=== PATIENT | male | born 1970 | race Caucasian/White ===

== ENCOUNTER 2019-08-30 17:05 | Emergency (ER) | payer MEDICARE, SELFPAY ==
--- NOTE | ~2019-08-30 | XR_ITS ---
EXAMINATION: XR chest 2V EXAM DATE: 08/30/2019 17:50 INDICATION: Fever, shortness of breath. TECHNIQUE: Frontal and lateral projections of the chest obtained and reviewed. Comparison is made to prior examination from 03/28/2019. FINDINGS: Sternotomy wires are present without findings to suggest sternal dehiscence. Heart is uppe r limits of normal in size. Cardiac silhouette is stable in size compared to prior exam. No confluent consolidation, pneumothorax or pleural effusion suspected. Spine stimulator leads. Mild thoracic sp ondylosis. There is no significant interval change. IMPRESSION: 1. No acute cardiopulmonary findings. Reviewed, dictated and finalized at location A.
[2019-08-30 17:16] VITALS: BP 129/72; PULSE 98; RESP 22; TEMP 37.5; O2SAT 96
--- NOTE | 2019-08-30 17:25 | ED.FEVER ---
HPI - Fever General Chief Complaint: Upper Respiratory Infection Stated Complaint: cant catch breath, blurry vision Time Seen by Provider: 08/30/19 17:25 Source: patient Mode of arrival: ambulatory Limitations: no limitations History of Present Illness HPI Narrative: 48-year-old man with history of coronary artery disease, congestive heart disease, and COPD comes in today complaining of feeling ill starting yesterday having a fever up to 100.2 F. patient states that today he began to have shortness of breath starting this morning. He has had a cough, nasal congestion, and fatigue. He denies any sick exposures, travel. he has had no vomiting, diarrhea, chest pain, purulence sputum production, dysuria, or abdominal pain. MD elicited complaint: fever and malaise Related Data Home Medications Medication Instructions Recorded Confirmed albuterol sulfate 2 puff INHALATION PRN PRN 08/30/19 08/30/19 allopurinol 300 mg PO DAILY 08/30/19 08/30/19 aspirin 81 mg PO DAILY 08/30/19 08/30/19 carvedilol 6.25 mg PO BID 08/30/19 08/30/19 gabapentin 600 mg PO BID 08/30/19 08/30/19 lisinopril 20 mg PO DAILY 08/30/19 08/30/19 magnesium 500 mg PO DAILY 08/30/19 08/30/19 metformin 1,000 mg PO HS 08/30/19 08/30/19 metformin 500 mg PO QAM 08/30/19 08/30/19 pravastatin 80 mg PO HS 08/30/19 08/30/19 Allergies Allergy/AdvReac Type Severity Reaction Status Date / Time propoxyphene Allergy Verified 01/12/11 17:44 Review of Systems Constitutional: Constitutional: Denies chills, Reports fatigue and Reports fever(s) Eyes: Eyes: Denies change in vision and Denies photophobia ENT: Denies dysphagia, Reports nasal congestion and Reports sore throat Cardiovascular: Cardiovascular: Denies chest pain and Denies radiating jaw, neck or arm pain Respiratory: Respiratory: Reports chest congestion, Reports cough, Reports dyspnea and Reports wheezing Gastrointestinal: Gastrointestinal: Denies abdominal pain, Denies diarrhea, Denies nausea and Denies vomiting Genitourinary: Genitourinary: Denies hematuria, Denies dysuria and Denies urinary frequency Musculoskeletal: Musculoskeletal: Reports myalgias, Denies arthralgias and Denies joint swelling Integumentary/Breasts: Skin/Breast: Denies pruritus, Denies erythema and Denies rash Neurologic: Denies vertigo, Denies dizziness and Denies syncope Psychiatric: Psychiatric: Denies anxiety and Denies depression Endocrine: Endocrine: Denies polydipsia and Denies polyuria Hematologic/Lymphatic: Hematologic/Lymphatic: Denies easy bleeding and Denies easy bruising Allergic/Immunologic: Allergic/Immunologic: Denies lip swelling and Denies wheezing PMFSH Past Medical History Medical History CAD (coronary artery disease) CHF (congestive heart failure) Chronic back pain Dyslipidemia Gout HTN (hypertension) T2DM (type 2 diabetes mellitus) Surgical History Surgical History H/O gastric bypass S/P CABG (coronary artery bypass graft) S/P MVR (mitral valve repair) Status post insertion of spinal cord stimulator Family History Family History Mother Hypertension Father Diabetes mellitus Social History Social History Smoking status: Former smoker Alcohol intake: never Substance use: never Living arrangements: with family Exam Const: General: alert Nutritional Appearance: obese Orientation/consciousness: patient oriented x3 Limitations: no limitations Other: mild acute distress. HENMT: Ears: external ears normal, TM's normal bilaterally and EAC's normal Mouth: Yes Normal oral and palatal mucosa present and Yes moist mucous membranes Throat: posterior oropharynx normal and uvula midline Eyes: Conjunctivae: conjunctivae normal Pupils: Equal, round and react
--- NOTE | 2019-08-30 17:29 | ECG_ITS ---
Measurements Intervals [place] Rate: 81 P: 35 [place]: 166 QRS: 26 QRSD: 93 T: 5 QT: 322 QTc: 374 Interpretive Statements SINUS RHYTHM BASELINE ARTIFACT- II, III, AVR, AVL,A VF NORMAL ECG Electronically Signed On 08-31-2019 8:20:16 CDT by Lance Redd D.O.
[2019-08-30 17:50] VITALS: PULSE 88; RESP 22; O2SAT 96
[2019-08-30] MEDS: IPRATROPIUM 0.5 MG/ALBUTEROL SULFATE 2.5 MG AMPUL.NEB 3 ML INHALATION (17:52)
[2019-08-30 17:53] VITALS: BP 133/75; PULSE 85; RESP 20; O2SAT 98
[2019-08-30 18:01] VITALS: PULSE 89; RESP 22; O2SAT 95
[2019-08-30 18:10] LABS: Basophils Absolute Auto 0.02 K/mm3 (0.00-0.10); Basophils Percent Auto 0.5 % (0.0-1.0); Eosinophils Absolute Auto 0.04 K/mm3 (0.02-0.50); Hematocrit 36.1 % (40.0-54.0); Hemoglobin 12.2 g/dL (14.0-18.0); Immature Granulocyte Absolute 0.01 K/mm3 (0.00-0.00); Immature Granulocyte Percent A 0.2 % (0.0-0.0); Lymphocytes Absolute Auto 0.58 K/mm3 (1.10-4.50); Lymphocytes Percent Auto 13.8 % (18.0-42.0); Mean Corpuscular HGB Conc 33.8 g/dL (32.0-36.0); Mean Corpuscular Hemoglobin 29.3 pg (27.0-31.0); Mean Corpuscular Volume 86.8 fL (78.0-102.0); Mean Platelet Volume 11.4 fl (8.7-11.0); Monocytes Absolute Auto 0.44 K/mm3 (0.10-0.90); Monocytes Percent Auto 10.5 % (2.0-11.0); Neutrophils Absolute Auto 3.1 K/mm3 (1.7-7.2); Platelet Count Result 131 K/mm3 (150-420); Red Blood Count 4.16 M/mm3 (4.70-6.10); Red Cell Distribution Width 14.4 % (11.6-14.4); White Blood Count 4.2 K/mm3 (4.8-10.8)
--- NOTE | 2019-08-30 18:23 | PC.NURSE ---
pt given urinal to obtain urine sample.
[2019-08-30 18:24] LABS: INR 1.1; Partial Thromboplastin Time 32.2 SEC (22.3-31.6); Prothrombin Time 11.7 Seconds (9.64-11.0)
[2019-08-30 18:26] LABS: BNP 93.5 pg/mL (0-100)
[2019-08-30 18:27] LABS: Alanine Aminotransferase 83 U/L (16-63); Albumin Level 3.3 g/dL (3.4-5.0); Alkaline Phosphatase 98 U/L (46-116); Anion Gap 13.7 mmol/L (7-16); Aspartate Amino Transferase 71 U/L (15-37); Bilirubin,Total 0.5 mg/dL (0.00-1.00); Blood Urea Nitrogen 6 mg/dL (7-18); Calcium 8.1 mg/dL (8.5-10.1); Carbon Dioxide 24 mmol/L (21-32); Chloride 103 mmol/L (98-108); Estimated CRCL calculation 145 ml/min; Estimated Glomerular Filt Rate > 60; Glucose 151 mg/dL (70-99); Lactic Acid 1.4 mmol/L (0.4-2.0); Osmolality Calculated 284 mOsm/kg (285-295); Potassium 3.7 mmol/L (3.5-5.1); Sodium 137 mmol/L (136-145); Total Protein 6.8 g/dL (6.4-8.2)
[2019-08-30 18:28] LABS: Influenza Control Valid (Valid)
[2019-08-30 18:30] LABS: Troponin I < 0.02 ng/mL (0.00-0.056)
--- NOTE | 2019-08-30 19:24 | PC.NURSE ---
Pt asked to provide urine sample, pt states you are not getting one .
[2019-08-30 19:36] VITALS: PULSE 98; RESP 20; O2SAT 93
[2019-08-30] MEDS: AZITHROMYCIN 250 MG TABLET 500 MG PO (20:19)
[2019-08-30] MEDS: methylPREDNISolone ACETATE 40 MG/ML VIAL 80 MG IM (20:21)
[2019-08-30 20:45] VITALS: BP 157/83; PULSE 83; RESP 20; O2SAT 95
== END 2019-08-30 20:46 | disposition home or self-care (01) ==
PROVIDERS: Emergency Provider Emergency Medicine; PCP Family Medicine
DX: J20.9 Acute bronchitis, unspecified (principal); Z87.891 Personal history of nicotine dependence
CPT/HCPCS: 36415; 71046; 80053; 83605; 83880; 84484; 85025; 85610; 85730; 87040; 87804; 93005; 96372; 99283; 99284; A9270; J1030

== ENCOUNTER 2020-03-10 19:57 | Emergency (ER) | payer MEDICARE, SELFPAY ==
[2020-03-10 20:05] VITALS: BP 170/91; PULSE 81; RESP 20; TEMP 36.6; O2SAT 97
--- NOTE | 2020-03-10 20:16 | ED.DENTAL ---
HPI - Dental/Oral General Chief complaint: Dental/Oral Stated complaint: tooth pain Time Seen by Provider: 03/10/20 20:00 Source: patient Mode of arrival: ambulatory Limitations: no limitations History of Present Illness HPI Narrative: 49-year-old man with a history of diffuse dental disease comes in today complaining of pain in his right jaw that radiates to his eye in his ear. Patient states he feels congested on the left side of his face and has left nasal discharge. He has had no fever, difficulty swallowing and difficulty breathing, or trauma. He has no neck pain. He states that he is trying to get a dentist but they are reluctant to work on him because he has a spinal stimulator for back pain. MD Complaint: tooth pain Teeth map: 1. Pain Onset (ago): week(s) (1-2) Duration: constant Severity: severe Relieving factors: other ( Tylenol) Exacerbating factors: chewing and cold Context: history of dental caries and poor dental care Associated symptoms: ear pain Treatment prior to arrival: oral analgesic Related Data Home Medications Medication Instructions Recorded Confirmed albuterol sulfate 2 puff INHALATION PRN PRN 08/30/19 03/10/20 allopurinol 300 mg PO DAILY 08/30/19 03/10/20 aspirin 81 mg PO DAILY 08/30/19 03/10/20 carvedilol 6.25 mg PO BID 08/30/19 03/10/20 gabapentin 600 mg PO BID 08/30/19 03/10/20 lisinopril 20 mg PO DAILY 08/30/19 03/10/20 magnesium 500 mg PO DAILY 08/30/19 03/10/20 metformin 1,000 mg PO HS 08/30/19 03/10/20 metformin 500 mg PO QAM 08/30/19 03/10/20 pravastatin 80 mg PO HS 08/30/19 03/10/20 Allergies Allergy/AdvReac Type Severity Reaction Status Date / Time propoxyphene Allergy Verified 01/12/11 17:44 Review of Systems Constitutional: Constitutional: Denies chills and Denies fever(s) Eyes: Eyes: Denies change in vision and Denies photophobia ENT: Denies dysphagia, Reports nasal congestion and Denies sore throat Cardiovascular: Cardiovascular: Denies chest pain and Denies radiating jaw, neck or arm pain Respiratory: Respiratory: Denies cough, Denies dyspnea and Denies wheezing Gastrointestinal: Gastrointestinal: Denies abdominal pain, Denies nausea and Denies vomiting Musculoskeletal: Musculoskeletal: Denies arthralgias and Denies joint swelling Integumentary/Breasts: Skin/Breast: Denies pruritus, Denies erythema and Denies rash Neurologic: Denies vertigo, Denies dizziness and Denies syncope Hematologic/Lymphatic: Hematologic/Lymphatic: Denies easy bleeding and Denies easy bruising Allergic/Immunologic: Allergic/Immunologic: Denies lip swelling and Denies tongue swelling [facility] Social History Social History Smoking status: Former smoker Alcohol intake: never Substance use: never Exam Const: General: alert Nutritional Appearance: obese Orientation/consciousness: patient oriented x3 Limitations: no limitations Other: moderate acute distress. HENMT: Head: normal to inspection Ears: external ears normal, TM's normal bilaterally and EAC's normal Face and sinus: normal facial exam Mouth: Yes moist mucous membranes Teeth and gingiva: abnormal tooth and associated gingiva upper right first molar tender, enamel fractured and pulp exposed Throat: posterior oropharynx normal Eyes: Conjunctivae: conjunctivae normal Pupils: Equal, round and reactive pupils present EOM: EOMs intact bilaterally Resp: Effort & Inspection: normal respiratory effort and not labored Auscultation: clear to auscultation bilaterally, no rales, no rhonchi and no wheezes Cardio: Rate: regular rate Rhythm: regular rhythm Skin: General skin exam: normal color, no jaundice and no pallor Rashes: no rashes Neuro: General: patient oriented x3, moves all extremities, no meningeal signs and CN's II-XI intact bilaterally Speech: normal speech Gait exam (Neuro): Normal gait present Extrem: General: normal to inspection and no clubbin
[2020-03-10] MEDS: CLINDAMYCIN HCL 150 MG CAP 300 MG PO (21:23)
[2020-03-10] MEDS: KETOROLAC (*BKC) 60 MG/2 ML VIAL IM (21:24)
[2020-03-10 21:30] VITALS: BP 170/84; PULSE 81; RESP 20; TEMP 36.6
== END 2020-03-10 21:32 | disposition home or self-care (01) ==
PROVIDERS: Emergency Provider Emergency Medicine; PCP Family Medicine
DX: K08.89 Other specified disorders of teeth and supporting structures (principal); Z87.891 Personal history of nicotine dependence
CPT/HCPCS: 96372; 99283; A9270; J1885